=== PATIENT | female | born 1990 | race Caucasian/White ===

== ENCOUNTER 2016-11-22 20:49 | Emergency (ER) | payer MEDICAID ==
[2016-11-22 21:09] VITALS: BP 133/69
--- NOTE | 2016-11-22 21:19 | UC ---
Complaint Female HPI - HPI Summary HPI Summary: had a LEEP 2 weeks ago- [facility], 1 week later passed a blood clot last 2 days she has some vaginal bleeding pinkish discharge to small amount of blood today is having a regular flow, some cramping 10 days early for her menses took some ibuprofen today with some reflief denies fever - History Of Current Complaint Chief Complaint: [facility] Stated Complaint: VAGINAL BLEEDING Time Seen by Provider: 11/22/16 21:13 Hx Obtained From: Patient Hx Last Menstrual Period: NOW (LAST PERIOR PRIOR WAS 10/31/16) Associated Signs And Symptoms: Positive: Vaginal Bleeding/Discharge - Allergies/Home Medications Allergies/Adverse Reactions: Allergies Allergy/AdvReac Type Severity Reaction Status Date / Time No Known Allergies Allergy Verified 11/22/16 21:09 Home Medications: Home Medications Ibuprofen TAB* [Motrin TAB* 600 MG] 600 mg PO PRN 11/22/16 [History] PMH/Surg Hx/FS Hx/Imm Hx Previously Healthy: Yes - Surgical History Surgical History: Yes Surgery Procedure, Year, and Place: LEEP 11/09/16 - Family History Known Family History: Positive: Diabetes - paternal grandfather Negative: Cardiac Disease, Hypertension - Social History Occupation: Employed Full-time Alcohol Use: Occasionally Substance Use Type: None Smoking Status (MU): Never Smoked Tobacco Review of Systems Constitutional: Negative Skin: Negative Eyes: Negative ENT: Negative Respiratory: Negative Cardiovascular: Negative Gastrointestinal: Negative Genitourinary: Other - vaginal bleeding Motor: Negative Neurovascular: Negative Musculoskeletal: Negative Neurological: Negative Psychological: Negative All Other Systems Reviewed And Are Negative: Yes Physical Exam Triage Information Reviewed: Yes Appearance: No Pain Distress, Well-Nourished Vital Signs: Initial Vital Signs Temp 98.5 F 11/22/16 20:58 Pulse 81 11/22/16 20:58 Resp 16 11/22/16 20:58 BP 133/69 11/22/16 20:58 Pulse Ox 100 11/22/16 20:58 Vital Signs Reviewed: Yes Eyes: Positive: Conjunctiva Clear Neck: Positive: No Lymphadenopathy Respiratory: Positive: Lungs clear, Normal breath sounds, No respiratory distress Cardiovascular: Positive: RRR, No Murmur, Pulses Normal Abdomen Description: Positive: Nontender, No Organomegaly, Soft. Negative: CVA Tenderness (R), CVA Tenderness (L), Distended, Guarding Bowel Sounds: Positive: Present Musculoskeletal: Positive: No Edema Neurological: Positive: Alert Psychological Exam: Normal Skin Exam: Normal Skin: Positive: Other - External genitalia without erythema, exudate or discharge. Vaginal vault is without discharge. Cervix is of normal color with area of healing from LEEP. The os is slightly open, vaginal bleeding with clots noted from OS. Uterus is noted to be of normal size and nontender. No cervical motion tenderness is seen. No masses are palpated. The adnexa are without masses or tenderness. Complaint Female Dx - Course Course Of Treatment: exam completed. site of LEEP healing weell, vaginal bleeding form os of cervix, no cervical motion tenderness. will have her start ibuprofen and followup with [facility] - Differential Dx/Diagnosis Differential Diagnosis/HQI/PQRI: Other - LEEP procedure complication, menses Provider Diagnoses: menses Discharge - Discharge Plan Condition: Stable Disposition: HOME Patient Education Materials: Menstruation (ED), Menorrhagia (ED) Referrals: Elliott Gomez MD [Primary Care Provider] - Additional Instructions: start taking ibuprofen as directed please call [facility] tomorrow to inform them that you are having menses If you have increase in pain, uncontrolled bleeding or fever you need to seek medical care
[2016-11-22] MEDS ORDERED: Ibuprofen TAB* 400 MG PO ONE (21:32)
== END 2016-11-22 21:45 | disposition home or self-care (01) ==
LOC: UCEAST 20:49
DX: N92.6 Irregular menstruation, unspecified (principal)
CPT/HCPCS: 99212; A9270-GY; G0463

== ENCOUNTER 2023-12-14 02:58 | Inpatient (IN) ==
[2023-12-14] MEDS ORDERED: Lidocaine 1% VIAL 10 MG/ML 30 ML VIAL INJ PRN (03:52)
[2023-12-14] MEDS ORDERED: Glycerin ADULT 2.4 gm SUPP PR PRN (11:58)
[2023-12-14] MEDS ORDERED: Lactated Ringers 1000 ml BAG 1,000 ML IV SCH (12:00)
[2023-12-14] MEDS ORDERED: Oxytocin in LR 20,000 MILLI.UNIT/1,000 ML BAG IV SCH (12:00)
[2023-12-14] MEDS: Dibucaine 1% OINT 28.35 GM TUBE PR PRN (12:37)
[2023-12-14] MEDS: Witch Hazel PAD JAR TOPICAL PRN (12:37)
[2023-12-14 17:16] LABS: Urine Benzodiazepine Screen None Detected (None Detect); Urine Cannabinoids Screen None Detected (None Detect); Urine Opiates Screen None Detected (None Detect)
[2023-12-14 19:22] LABS: Urine Benzodiazepine Screen None Detected (None Detect); Urine Opiates Screen None Detected (None Detect)
[2023-12-15 08:51] LABS: Hematocrit 28.7 % (35-45); Hemoglobin 9.4 g/dL (11.5-14.3); Mean Corpuscular Hemoglobin 27.7 pg (27-33); Mean Corpuscular Hgb Conc 32.7 g/dL (31-36); Mean Corpuscular Volume 84.6 fL (80-97); Platelet Count 199 10^3/uL (150-450); Red Cell Distribution Width 14.9 % (12-17); White Blood Count 25.6 10^3/uL (3.8-11.8)
[2023-12-15 09:36] LABS: ABS Eosinophils 0.1 10^3/uL (0.0-0.5); ABS Lymphocytes 1.4 10^3/uL (1.0-4.8); ABS Monocytes 1.1 10^3/uL (0.0-0.9); ABS Neutrophils 22.9 10^3/uL (1.5-7.6); ABS Nucleated RBC 0.01 10^3/ul; Eosinophil % 0.6 %; Lymphocyte % 5.3 %
[2023-12-15] MEDS: Dibucaine 1% OINT 28.35 GM TUBE PR PRN (13:52)
[2023-12-16 06:58] LABS: ABS Eosinophils 0.3 10^3/uL (0.0-0.5); ABS Lymphocytes 2.4 10^3/uL (1.0-4.8); ABS Monocytes 1.2 10^3/uL (0.0-0.9); ABS Neutrophils 10.9 10^3/uL (1.5-7.6); Eosinophil % 1.8 %; Hematocrit 28.1 % (35-45); Hemoglobin 9.2 g/dL (11.5-14.3); Mean Corpuscular Hemoglobin 27.8 pg (27-33); Mean Corpuscular Hgb Conc 32.8 g/dL (31-36); Mean Corpuscular Volume 84.7 fL (80-97); Mean Platelet Volume 9.2 fL (7.5-11.2); Platelet Count 208 10^3/uL (150-450); Red Blood Count 3.32 10^6/uL (3.63-4.92); White Blood Count 14.9 10^3/uL (3.8-11.8)
[2023-12-16] MEDS: Dibucaine 1% OINT 28.35 GM TUBE PR PRN (09:27)
[2023-12-16] MEDS: Witch Hazel PAD JAR TOPICAL PRN (09:27)
[2023-12-16 09:37] VITALS: BP 116/64
== END 2023-12-16 13:20 | disposition home or self-care (01) | DRG 560 ==
LOC: MCHOBOUT 02:58 → MCHOB 03:51
PROVIDERS: ADMIT Midwife; ATTEND Midwife